=== PATIENT | female | born 1950 | race African-American/Black ===

== ENCOUNTER 2023-05-13 13:55 | Emergency (ER) | payer MEDICARE, OTHER ==
[~2023-05-13] VITALS: Ht 157.5 cm; Wt 78.5 kg
[2023-05-13 14:31] LABS: BASOPHILS # (AUTO) 0.1 K/uL (0.0-0.2); BASOPHILS % (AUTO) 1.2 % (0.0-2.0); EOSINOPHILS # (AUTO) 0.3 K/uL (0.0-0.7); EOSINOPHILS % (AUTO) 5.4 % (0.0-6.0); HEMATOCRIT 39 % (33-45); HEMOGLOBIN 12.4 g/dL (11.5-14.8); LYMPHOCYTES # (AUTO) 1.9 K/uL (0.8-4.8); MEAN CORPUSCULAR HEMOGLOBIN 25 PG (26.0-33.0); MEAN CORPUSCULAR HGB CONC 32 g/dl (31.0-36.0); MEAN CORPUSCULAR VOLUME 80 fL (82-100); MONOCYTES # (AUTO) 0.4 K/uL (0.1-1.30); MONOCYTES % (AUTO) 7.3 % (2.0-12.0); NEUTROPHILS # (AUTO) 2.8 K/uL (1.8-8.9); NEUTROPHILS % (AUTO) 51.1 % (43.0-81.0); PLATELET COUNT (AUTO) 264 K/uL (150-450); RED BLOOD CELL COUNT(AUTO) 4.93 MIL/uL (4.0-5.2); RED CELL DISTRIBUTION WIDTH 13.8 % (11.5-15.0); WHITE BLOOD COUNT (AUTO) 5.4 K/uL (4.3-11.0)
[2023-05-13] MEDS: IV NS 0.9% 500 ML BAG IV ONE (14:34)
[2023-05-13] MEDS ORDERED: ONDANSETRON HCL/PF 4 MG/2 ML VIAL ONE (14:36)
[2023-05-13] MEDS ORDERED: MAG HYDROX/AL HYDROX/SIMETH 30 ML UDC ONE (14:36)
[2023-05-13] MEDS ORDERED: PANTOPRAZOLE 40 MG VIAL ONE (14:36)
[2023-05-13] MEDS: PANTOPRAZOLE 40 MG VIAL IV ONE (14:37)
[2023-05-13] MEDS: ONDANSETRON HCL/PF 4 MG/2 ML VIAL IVP ONE (14:37)
[2023-05-13] MEDS: MAG HYDROX/AL HYDROX/SIMETH 30 ML UDC PO ONE (14:37)
[2023-05-13 14:39] LABS: CALCIUM, SERUM 9.3 mg/dL (8.5-10.1); CARBON DIOXIDE 27 mmol/L (21-32); CHLORIDE 100 mmol/L (98-107); CREATININE 0.7 mg/dL (0.6-1.3); GLUCOSE 111 mg/dL (74-106); POTASSIUM 3.9 mmol/L (3.5-5.1); SODIUM SERUM 137 mmol/L (136-145); UREA NITROGEN, BLOOD 7 mg/dL (7-18)
[2023-05-13 14:51] LABS: ALBUMIN 3.9 g/dL (3.4-5.0); BILIRUBIN,DIRECT 0.1 mg/dL (0.0-0.2); BILIRUBIN,TOTAL 0.5 mg/dL (0.2-1.0); TOTAL PROTEIN, SERUM 8.5 g/dL (6.4-8.2)
[2023-05-13] MEDS ORDERED: FAMO-131 PO (15:58)
[2023-05-13] MEDS ORDERED: OMEP20CA15 PO (15:58)
[2023-05-13] MEDS ORDERED: ONDA4TAB11 PO (15:58)
[2023-05-13 16:06] VITALS: BP 134/81; TEMP 98.2; O2SAT 98
== END 2023-05-13 16:06 | disposition home or self-care (01) ==
LOC: ER 14:15
DX: R55 Syncope and collapse (principal); K21.9 Gastro-esophageal reflux disease without esophagitis; Z79.899 Other long term (current) drug therapy
CPT/HCPCS: 99285; 96374; 71045; 96375; 93005; 85025; 80048; 83690; 80076; 36415; 84484; J2405; J7040; C9113